=== PATIENT | male | born 1960 | race Caucasian/White ===

== ENCOUNTER → 2018-11-13 09:27 | Outpatient (CLI) | payer OTHER | END | disposition home or self-care (01) | LOC: D.CT 09:27 | PROVIDERS: ATTEND Internal Medicine Gastroenterology | DX: R19.00 Intra-abdominal and pelvic swelling, mass and lump, unspecified site (principal); R63.4 Abnormal weight loss; R11.2 Nausea with vomiting, unspecified ==

== ENCOUNTER → 2018-11-15 09:55 | Outpatient (CLI) | payer OTHER | END | disposition home or self-care (01) | LOC: D.RAD 09:55 | PROVIDERS: ATTEND Internal Medicine Gastroenterology | DX: K59.00 Constipation, unspecified (principal) ==

== ENCOUNTER → 2018-11-25 10:33 | Outpatient (CLI) | payer OTHER ==
[~2018-11-25 10:33] MED LIST: HALDOL DECAN50 MG/ML IM; MEGACE40 MG PO; MIRALAX17 GM PO; ZYPREXA20 MG
== END | disposition home or self-care (01) ==
LOC: D.RAD 10:33
PROVIDERS: ATTEND Internal Medicine Gastroenterology
DX: K59.00 Constipation, unspecified (principal)

== ENCOUNTER 2018-12-05 07:09 | Day surgery (SDC) | payer OTHER ==
[2018-12-04 09:52] LABS: BASOPHILS 0.1 % (0-2); EOSINOPHILS 0.7 % (0-7); IMMATURE GRANULOCYTES 0.3 % (0-5); LYMPHOCYTES 24.2 % (15-50); MCH 31.8 pg (26.0-34.0); MCHC 34.2 g/dL (31.0-37.0); MCV 92.9 fL (80.0-100.0); MEAN PLATELET VOLUME 8.7 fL (7.4-10.4); MONOCYTES 9.2 % (2-11); NEUTROPHILS 65.5 % (40-80); PLATELET COUNT 265 10x3/uL (130-400); RBC 4.09 10x6/uL (4.20-6.10); RDW 14.4 % (11.5-14.5); WBC 7.4 10x3/uL (4.8-10.8)
[2018-12-04 10:00] LABS: CALC OSMOLALITY 268 mosm/kg (275-300); CALCIUM 8.3 mg/dL (8.5-10.1); CHLORIDE - SERUM 102 mmol/L (98-107); CREATININE - SERUM 0.8 mg/dL (0.6-1.3); GLUCOSE 92 mg/dL (74-106); POTASSIUM - SERUM 4.5 mmol/L (3.5-5.1); SODIUM 134 mmol/L (136-145); UREA NITROGEN 14 mg/dL (7-18); eGFR NON AFRICAN AMERICAN > 90 mL/min (90-120)
[~2018-12-05] VITALS: Ht 188 cm; Wt 55.3 kg
[2018-12-05] MEDS ORDERED: MULTI-DAY VITAM1 TAB PO (07:38)
[2018-12-05 07:40] VITALS: BP 131/70; Ht 188 cm; Wt 55.3 kg
[2018-12-05] MEDS ORDERED: HYDROCODON-ACE1 EA10 PO (12:20)
--- NOTE | 2018-12-05 15:45 | NUR ---
PATIENT AMBULATES TO BATHROOM AND VOIDS MODERATE AMOUNT IN TOILET WITHOUT DIFFICULTY. AMBULATES WITHOUT UNSTEADINESS. RIGHT HAND PIV DC'D WITH TIP INTACT. DRESSING IN PERSONAL CLOTHING
--- NOTE | 2018-12-05 16:05 | NUR ---
THIS NURSE SPEAKS ON PHONE TO NURSE MAYURI AT THE [facility] WHERE PATIENT LIV[facility]. DISCUSSED PATIENT'S DISCHARGE INSTRUCTIONS WITH MAYURI 1618 DISCHARGE INSTRUCTIONS REVIEWED WITH PATIENT AND BROTHER. DISCHARGED HOME VIA WHEELCHAIR TO PRIVATE VEHICLE WITH BROTHER
--- NOTE | 2018-12-13 12:15 | OP ---
PATIENT NAME: TONYA BRO MEDICAL RECORD: [id number] :58 [facility] AD[facility] DATE: SURGEON: ROSCOE WADE MD DATE OF OPERATION: 12/05/2018 PREOPERATIVE DIAGNOSES: 1. Bilateral inguinal hernias. 2. Chronic constipation. 3. Tobacco dependence syndrome. 4. Anxiety. POSTOPERATIVE DIAGNOSES: 1. Bilateral inguinal hernias. 2. Chronic constipation. 3. Tobacco dependence syndrome. 4. Anxiety. PROCEDURE: Bilateral inguinal hernia repairs with medium PHS mesh. SURGEON: Roscoe Wade MD REPORT OF PROCEDURE: The patient's abdomen was prepped and draped in sterile fashion. We approached the right side first. An oblique incision was made above the inguinal ligament. Electrocautery was used to dissect through the subcutaneous tissues to the external oblique fascia. This fascia was opened up to the external ring using electrocautery. A large spermatic cord with hernia sac was elevated and the testicle was eviscerated into the wound. We placed a [place] around the cord and hernia sac. We then began a tedious dissection of the hernia sac off of the cord structures with care taken to try and maintain any of the vascular structures and the vas deferens, which were seen. We eventually were able to dissect the hernia sac free. This was transected at its base and oversewn in a locking fashion with 2-0 Vicryl. A window was made at the base of the inguinal floor and the preperitoneal space of Retzius was opened up and a medium PHS mesh was inserted. This was sutured down on all 4 sides using multiple interrupted 0 Vicryls. We then inspected any nerve tissue, which was found was transected proximal to the mesh. We then reapproximated the external oblique fascia with running 2-0 Vicryl, Vel's was closed with interrupted 3-0 Vicryl and the skin was closed with running subcutaneous 5-0 Monocryl. A 7 mL of 1% lidocaine with epinephrine was infused into the surrounding tissues. We then approached the left side. An oblique incision was made above the inguinal ligament. Electrocautery was used to dissect through the subcutaneous tissues down to the external oblique fascia. This fascia was opened up to the external ring using electrocautery. We then elevated the spermatic cord and hernia sac and placed a [place] around it. A tedious dissection was performed taking the hernia sac off of the spermatic cord with care taken to try and maintain any vascular structures present. Once the hernia sac was dissected free, then it was high ligated and oversewn at its base using running locking 2-0 Vicryl. We then opened the inguinal floor and dissected out the preperitoneal space of Retzius. A medium PHS mesh was inserted and sutured down on all 4 sides using multiple interrupted 0 Vicryls. Any nerve tissue, which was found was then treated with electrocautery proximal to the hernia mesh. The external oblique fascia was then closed with running 2-0 Vicryl, Vel's was closed with interrupted 3-0 Vicryl and the skin was closed with running subcutaneous 5-0 Monocryl. A total of 8 mL of 1% lidocaine with epinephrine was infused into this side of the incisions. OPERATIVE REPORT [id number] TONYA BRO COMPLICATIONS: None. CONDITION: Stable. ANESTHESIA: General endotracheal and local. BLOOD LOSS: Minimal. TRANSINT:[id number] Voice Confirmation ID: [id number] DOCUMENT ID: [id number] ROSCOE WADE MD at 1215 CC: MERY ASHRAF MD [id number] DICTATION DATE: 12/05/18 1228 [employer] 2ND SHIFT: 12/05/18 1316 [facility] 12/05/18 [id number] [place] [address]
== END 2018-12-05 16:15 | disposition home or self-care (01) ==
LOC: D.OPS 07:09 → D.PAN 13:45 → D.OPS 13:45
PROVIDERS: ATTEND Surgery
DX: K40.20 Bilateral inguinal hernia, without obstruction or gangrene, not specified as recurrent (principal); K59.09 Other constipation; F17.200 Nicotine dependence, unspecified, uncomplicated; F41.9 Anxiety disorder, unspecified; Z01.812 Encounter for preprocedural laboratory examination

== ENCOUNTER → 2019-01-24 08:25 | Outpatient (CLI) | payer OTHER ==
[2018-12-05 07:40] VITALS: BMI 15.7
[~2019-01-24 08:25] MED LIST changes: +HYDROCODON-ACE1 EA10 PO; +MULTI-DAY VITAM1 TAB PO
== END | disposition home or self-care (01) ==
LOC: D.US 08:25
PROVIDERS: ATTEND Internal Medicine Gastroenterology
DX: R11.2 Nausea with vomiting, unspecified (principal); R10.9 Unspecified abdominal pain

== ENCOUNTER → 2019-01-28 08:05 | Outpatient (CLI) | payer OTHER ==
[2018-12-05 07:40] VITALS: BMI 15.7
== END | disposition home or self-care (01) ==
LOC: D.NM 08:05
PROVIDERS: ATTEND Internal Medicine Gastroenterology
DX: R11.2 Nausea with vomiting, unspecified (principal); R10.9 Unspecified abdominal pain

== ENCOUNTER 2019-02-25 05:09 | Day surgery (SDC) | payer OTHER ==
[~2019-02-25] VITALS: Ht 188 cm; Wt 55.3 kg
[2019-02-25 06:15] LABS: BASOPHILS 0.1 % (0-2); EOSINOPHILS 1.8 % (0-7); HEMATOCRIT 42.2 % (42.0-54.0); IMMATURE GRANULOCYTES 0.3 % (0-5); MCH 31.5 pg (26.0-34.0); MCHC 33.2 g/dL (31.0-37.0); MCV 94.8 fL (80.0-100.0); MEAN PLATELET VOLUME 9.2 fL (7.4-10.4); MONOCYTES 7.7 % (2-11); NEUTROPHILS 64.1 % (40-80); PLATELET COUNT 304 10x3/uL (130-400); RBC 4.45 10x6/uL (4.20-6.10); RDW 13.9 % (11.5-14.5); WBC 7.6 10x3/uL (4.8-10.8)
[2019-02-25 06:19] LABS: CALC OSMOLALITY 279 mosm/kg (275-300); CALCIUM 8.7 mg/dL (8.5-10.1); CARBON DIOXIDE 27.9 mmol/L (21.0-32.0); CHLORIDE - SERUM 103 mmol/L (98-107); CREATININE - SERUM 0.6 mg/dL (0.6-1.3); GLUCOSE 103 mg/dL (74-106); POTASSIUM - SERUM 4.2 mmol/L (3.5-5.1); SODIUM 139 mmol/L (136-145); UREA NITROGEN 19 mg/dL (7-18); eGFR NON AFRICAN AMERICAN > 90 mL/min (90-120)
--- NOTE | 2019-02-25 06:30 | NUR ---
0629 [employer]RE FIGHTERS DISPATCHER, CHELI KLINE, CALLED AND REQUEST PUT IN FOR A PSYCH CONSULT BASED ON SUICIDE RISK SCREENING.
--- NOTE | 2019-02-25 06:50 | NUR ---
DR CAGE NOTIFIED AND REVIEWED PATIENTS BEHAVIOR AND ASSESSMENT RESULTS. PATIENT IS A LOW RISK PER DR CAGE. DR CAGE STATED TO GIVE RESOURCES TO PATIENT AT TIME OF DISCHARGE. RESOURCES REVIEWED AND VERBALIZED UNDERSTANDING. NO FURTHER ORDERS AT THIS TIME.
[2019-02-25 06:54] VITALS: BP 122/65; Ht 188 cm; Wt 55.3 kg
[2019-02-25] MEDS ORDERED: HYDROCODON-ACE1 EA10 PO (08:19)
--- NOTE | 2019-02-25 08:53 | NUR ---
PATIENT AWAKE AND ALERT x 3, MEETS ANESTHESIA DISCHARGE CRITERIA.
--- NOTE | 2019-02-25 10:41 | NUR ---
1015 ICE PACK TO RUQ ABDOMEN. 1 FRONT ROYAL FOR PAIN LEVEL 3-4/10. Rajni SHAW R.N.
--- NOTE | 2019-02-25 13:09 | NUR ---
1250 GIVEN DISCHARGE INFORMATION INCLUDING: RX: NORCO 10/325MG, MED REC, RTC APPT., [facility] OPS D/C INSTRUCTIONS, & CHOLECYSTECOMTY D/C INSTRUCTIONS. PT VOICED UNDERSTANDING. TO PRIVATE CAR PER WHEELCHAIR. HOME WITH WOMAN FROM [employer]. Rajni SHAW R.N. [id number] REPORT CALLED TO JOSEY WRIGHT R.N. [employer] [facility]. Rajni SHAW R.N.
--- NOTE | 2019-03-13 13:49 | OP ---
PATIENT NAME: TONYA BRO MEDICAL RECORD: [id number] :56 LOCATION:[facility] ADMISSION DATE: SURGEON: ROSCOE WADE MD DATE OF OPERATION: 02/25/2019 PREOPERATIVE DIAGNOSES: 1. Gallstones. 2. Tobacco dependence syndrome. 3. Chronic constipation. POSTOPERATIVE DIAGNOSES: 1. Gallstones. 2. Tobacco dependence syndrome. 3. Chronic constipation. PROCEDURE: Laparoscopic cholecystectomy. SURGEON: Roscoe Wade MD REPORT OF PROCEDURE: The patient's abdomen was prepped and draped in sterile fashion. A cutdown was made on the superior aspect of the umbilicus, 0 Vicryls were placed in the fascia bilaterally and the fascia was incised with a 15-blade. I then bluntly entered the peritoneal cavity and placed a 12-mm Candy port. Under direct visualization, a 5 mm trocar was placed in the epigastrium and 2 more 5-mm trocars were placed in the right subcostal region. The gallbladder was grasped and elevated. The cystic artery and cystic duct were dissected free and these were clipped proximally and distally and ligated in standard fashion. The gallbladder was taken off the liver bed using electrocautery and placed into the right upper quadrant. Any bleeding from the liver bed was then treated with electrocautery. We irrigated out the right upper quadrant and assured there was no sign of any further bleeding or bile leakage. At this point, the ports and insufflation were then removed and the gallbladder was taken out through the umbilicus. The umbilical fascia was closed with interrupted 0 Vicryls times 3. The wounds were then irrigated out with normal saline and infused with 10 mL of 0.25% Marcaine with epinephrine. The skin incisions were all closed with subcutaneous 5-0 Monocryl and dressed appropriately. COMPLICATIONS: None. CONDITION: Stable. ANESTHESIA: General endotracheal and local. BLOOD LOSS: Minimal. TRANSINT:[id number] Voice Confirmation ID: [id number] DOCUMENT ID: [id number] OPERATIVE REPORT [id number] TONYA BRO CHRISTIAN MD at 1349 CC: MERY ASHRAF MD [id number] DICTATION DATE: 02/25/19821 [employer] SOCIAL WORKER: 02/25/19 1035 [facility] 02/25/19 [facility] [address] [place] [address]
== END 2019-02-25 12:50 | disposition home or self-care (01) ==
LOC: D.OPS 05:09 → D.PAN 10:30 → D.OPS 10:30
PROVIDERS: ATTEND Surgery
DX: K80.80 Other cholelithiasis without obstruction (principal); F17.200 Nicotine dependence, unspecified, uncomplicated; K59.04 Chronic idiopathic constipation

== ENCOUNTER → 2020-08-23 07:33 | Outpatient (CLI) | payer MEDICAID ==
[~2020-08-23 07:33] MED LIST changes: +AMITIZA24 MCG PO; +CHRONULAC30 ML PO; +GLUCOPHAGE500 MG PO; +MUCINEX DM ER1 EAC1 PO; +NEXIUM40 MG PO; +OMEPRAZOLE40 MG PO; +SINGULAIR10 MG PO; +VENTOLIN HFA [SP8 GM INH; +VITAMIN D325 MC1 PO; +ZYPREXA20 MG PO
== END | disposition home or self-care (01) ==
LOC: D.RAD 07:33
DX: C15.9 Malignant neoplasm of esophagus, unspecified (principal)